=== PATIENT | female | born 1985 | race Two or more races ===

== ENCOUNTER 2021-05-08 05:55 | Day surgery (SDC) | payer OTHER ==
[~2021-05-08 05:55] MED LIST: PRENATAL1 TAB
== END 2021-05-08 10:10 | disposition home or self-care (01) ==
LOC: AMB-ENDOS 05:55 → CIR.AMB 15:30
PROVIDERS: ATTEND Surgery
DX: D12.7 Benign neoplasm of rectosigmoid junction (principal); Z20.822 Contact with and (suspected) exposure to COVID-19